=== PATIENT | female | born 1955 | race Caucasian/White ===

== ENCOUNTER → 2020-11-15 | Outpatient (CLI) | payer OTHER ==
[~2020-11-15] MED LIST: ALTOPREV20 MG PO; ANASTROZOLE1 MG PO; BETAMETHASONE V60 ML TP; CITALOPRAM HBR10 MG PO; COLACE 100MG C100 MG PO; COLACE100 MG PO; DULCOLAX5 MG PO; ELAVIL 50 MG TA50 MG PO; KEPPRA500 MG PO; KLONOPIN TAB 00.5 MG PO; KLONOPIN1 MG PO; LISINOPRIL-HCT1 EAC1 PO; NORCO 5-325 TA1 EACH PO; TENORMIN 50 MG50 MG PO; VITAMIN B-121000 MC2 SL; VITAMIN D250000 UNIT PO; VITAMIN D325 MCG PO; ZOFRAN4 MG PO
== END ==
LOC: HEART 5 13:44
DX: R06.02 Shortness of breath (principal); I27.20 Pulmonary hypertension, unspecified
CPT/HCPCS: 93306

== ENCOUNTER → 2021-03-11 | Outpatient (CLI) | payer OTHER ==
[2021-03-16 10:15] LABS: ACHR MODULATING ANTIBODIES <12 % (0-20)
== END ==
LOC: LAB 10:29
PROVIDERS: Ophthalmology
DX: G70.00 Myasthenia gravis without (acute) exacerbation (principal)
CPT/HCPCS: 83519

== ENCOUNTER → 2021-04-19 | Outpatient (CLI) | payer OTHER | LOC: MRI 08:42 | DX: R56.9 Unspecified convulsions (principal); R90.82 White matter disease, unspecified | CPT/HCPCS: 70553; A9577 ==

== ENCOUNTER 2021-04-23 13:29 | Emergency (ER) | payer OTHER ==
[~2021-04-23 13:29] MED LIST changes: -KEPPRA500 MG PO
[2021-04-23 14:24] LABS: HEMOGLOBIN 14.1 gm/dl (12.3-15.3); RED BLOOD COUNT 4.25 M/UL (4.00-5.10); WHITE BLOOD COUNT 5.1 K/UL (4.5-11.0)
[2021-04-23 14:32] LABS: BUN/CREATININE RATIO 21 (0-10)
== END 2021-04-23 16:12 | disposition home or self-care (01) ==
LOC: ER1 13:29
PROVIDERS: Physician Assistant Medical
DX: R56.9 Unspecified convulsions (principal); I10 Essential (primary) hypertension; Z85.3 Personal history of malignant neoplasm of breast; Z88.8 Allergy status to other drugs, medicaments and biological substances; Z79.899 Other long term (current) drug therapy
CPT/HCPCS: 71045; 80053; 81001; 82550; 82553; 83605; 83874; 84484; 85025; 93005; 99285

== ENCOUNTER 2021-05-15 15:43 | Emergency (ER) | payer OTHER, SELFPAY ==
[2021-05-15 17:26] LABS: HEMOGLOBIN 12.6 gm/dl (12.3-15.3); RED BLOOD COUNT 3.81 M/UL (4.00-5.10); WHITE BLOOD COUNT 3.9 K/UL (4.5-11.0)
[2021-05-15 17:58] LABS: BUN/CREATININE RATIO 15 (0-10)
== END 2021-05-15 20:30 | disposition home or self-care (01) ==
LOC: ER1 15:43
PROVIDERS: Family Medicine
DX: R56.9 Unspecified convulsions (principal); E87.6 Hypokalemia
CPT/HCPCS: 70450; 70496; 70498; 80048; 85025; 99285; Q9967

== ENCOUNTER 2021-05-19 10:58 | Emergency (ER) | payer OTHER, SELFPAY ==
[2021-05-19 11:55] LABS: HEMOGLOBIN 13.4 gm/dl (12.3-15.3); RED BLOOD COUNT 4.07 M/UL (4.00-5.10); WHITE BLOOD COUNT 4.7 K/UL (4.5-11.0)
[2021-05-19 12:18] LABS: BUN/CREATININE RATIO 23 (0-10)
[2021-05-19] MEDS ORDERED: KEPPRA500 MG PO (13:53)
== END 2021-05-19 14:12 | disposition home or self-care (01) ==
LOC: ER1 10:58
PROVIDERS: Student in an Organized Health Care Education/Training Program
DX: R56.9 Unspecified convulsions (principal); I10 Essential (primary) hypertension; Z88.8 Allergy status to other drugs, medicaments and biological substances
CPT/HCPCS: 80053; 81001; 82550; 82553; 83874; 84484; 85025; 93005; 96374; 99285; J1953

== ENCOUNTER 2021-05-25 10:14 | Emergency (ER) | payer OTHER, SELFPAY ==
[~2021-05-25 10:14] MED LIST changes: +KEPPRA500 MG PO
[2021-05-25 10:39] LABS: HEMOGLOBIN 13.8 gm/dl (12.3-15.3); RED BLOOD COUNT 4.36 M/UL (4.00-5.10); WHITE BLOOD COUNT 5.4 K/UL (4.5-11.0)
[2021-05-25 11:04] LABS: BUN/CREATININE RATIO 20 (0-10)
== END 2021-05-25 13:30 | disposition home or self-care (01) ==
LOC: ER1 10:14
PROVIDERS: Emergency Medicine
DX: R56.9 Unspecified convulsions (principal); E78.5 Hyperlipidemia, unspecified; I10 Essential (primary) hypertension; Z88.8 Allergy status to other drugs, medicaments and biological substances; Z79.899 Other long term (current) drug therapy
CPT/HCPCS: 80053; 81001; 85025; 99284; J2060

== ENCOUNTER 2021-05-30 07:51 | Emergency (ER) | payer OTHER ==
[2021-05-30 08:42] LABS: HEMOGLOBIN 12.3 gm/dl (12.3-15.3); RED BLOOD COUNT 3.79 M/UL (4.00-5.10)
[2021-05-30 09:03] LABS: BUN/CREATININE RATIO 19 (0-10)
== END 2021-05-30 10:50 | disposition home or self-care (01) ==
LOC: ER1 07:51
PROVIDERS: Emergency Medicine
DX: F44.5 Conversion disorder with seizures or convulsions (principal)
CPT/HCPCS: 80053; 85025; 99284; J7030

== ENCOUNTER 2021-09-09 14:42 | Observation (INO) | payer OTHER ==
[~2021-09-09] VITALS: Ht 160 cm; Wt 67.1 kg
[~2021-09-09 14:42] MED LIST changes: -CITALOPRAM HBR10 MG PO; +CITALOPRAM HBR20 MG PO; +VITAMIN B-121000 MC2 PO; -VITAMIN B-121000 MC2 SL
[2021-09-09 15:10] LABS: RED BLOOD COUNT 3.98 M/UL (4.00-5.10); WHITE BLOOD COUNT 4.4 K/UL (4.5-11.0)
[2021-09-09 15:36] LABS: BUN/CREATININE RATIO 17 (0-10)
[2021-09-09] MEDS ORDERED: LAMOTRIGINE25 MG PO (17:49)
[2021-09-10 05:01] LABS: HEMOGLOBIN 11.5 gm/dl (12.3-15.3); RED BLOOD COUNT 3.64 M/UL (4.00-5.10); WHITE BLOOD COUNT 3.4 K/UL (4.5-11.0)
[2021-09-10 05:26] LABS: BUN/CREATININE RATIO 19 (0-10)
[2021-09-11 07:52] LABS: HEMOGLOBIN 11.9 gm/dl (12.3-15.3); RED BLOOD COUNT 3.75 M/UL (4.00-5.10)
[2021-09-11 07:55] LABS: WHITE BLOOD COUNT 4.3 K/UL (4.5-11.0)
[2021-09-11 08:17] LABS: BUN/CREATININE RATIO 22 (0-10)
[2021-09-12 07:13] LABS: HEMOGLOBIN 11.9 gm/dl (12.3-15.3); RED BLOOD COUNT 3.64 M/UL (4.00-5.10); WHITE BLOOD COUNT 4.1 K/UL (4.5-11.0)
[2021-09-12 07:35] LABS: BUN/CREATININE RATIO 15 (0-10)
[2021-09-12] MEDS ORDERED: PROTONIX 40 MG40 M1 PO (09:05)
== END 2021-09-12 11:16 | disposition home or self-care (01) ==
LOC: ER1 14:42 → MED SURG 4 16:34 → CDU 16:34 → MED SURG 4 19:03
PROVIDERS: Emergency Medicine; Physician Assistant; ADMIT Internal Medicine
DX: R07.89 Other chest pain (principal); E87.6 Hypokalemia; D72.819 Decreased white blood cell count, unspecified; I10 Essential (primary) hypertension; Z85.038 Personal history of other malignant neoplasm of large intestine; Z85.3 Personal history of malignant neoplasm of breast; Z92.21 Personal history of antineoplastic chemotherapy; R56.9 Unspecified convulsions; I31.3 Pericardial effusion (noninflammatory); K22.89 Other specified disease of esophagus; R06.02 Shortness of breath; I27.20 Pulmonary hypertension, unspecified; N60.12 Diffuse cystic mastopathy of left breast; E78.5 Hyperlipidemia, unspecified; G62.9 Polyneuropathy, unspecified; F41.9 Anxiety disorder, unspecified; F32.A Depression, unspecified; K57.30 Diverticulosis of large intestine without perforation or abscess without bleeding; Z90.11 Acquired absence of right breast and nipple; Z90.49 Acquired absence of other specified parts of digestive tract; Z20.822 Contact with and (suspected) exposure to COVID-19; Z79.899 Other long term (current) drug therapy; Z98.51 Tubal ligation status; Z88.1 Allergy status to other antibiotic agents; Z88.5 Allergy status to narcotic agent; Z98.84 Bariatric surgery status
CPT/HCPCS: ECHO; 36415; 71045; 80048; 80053; 80061; 82550; 82553; 83735; 83874; 83880; 84132; 84439; 84443; 84484; 85025; 85379; 93005; 93306; 93970; 96372; 96374; 99285; G0378; J1200; J1650; J2060; J2270; J2405; J2930; Q9967

== ENCOUNTER → 2021-10-24 | Day surgery (SDC) | payer OTHER ==
[~2021-10-24] MED LIST changes: +DIAZEPAM PO; +LAMOTRIGINE25 MG PO; +PROTONIX 40 MG40 M1 PO
== END | disposition home or self-care (01) ==
LOC: OR 05:55
DX: K29.50 Unspecified chronic gastritis without bleeding (principal); K25.7 Chronic gastric ulcer without hemorrhage or perforation; R13.14 Dysphagia, pharyngoesophageal phase; I10 Essential (primary) hypertension; E66.3 Overweight; E78.00 Pure hypercholesterolemia, unspecified; K59.09 Other constipation; K22.4 Dyskinesia of esophagus; Z86.010 Personal history of colon polyps; Z85.038 Personal history of other malignant neoplasm of large intestine; Z68.29 Body mass index [BMI] 29.0-29.9, adult; Z20.822 Contact with and (suspected) exposure to COVID-19; Z98.51 Tubal ligation status; Z90.49 Acquired absence of other specified parts of digestive tract; Z88.5 Allergy status to narcotic agent; Z88.1 Allergy status to other antibiotic agents
CPT/HCPCS: J2704; J7040

== ENCOUNTER 2021-11-27 06:24 | Inpatient (IN) | payer OTHER ==
[~2021-11-27] VITALS: Ht 160 cm; Wt 68.0 kg
[2021-11-27 07:59] LABS: HEMOGLOBIN 14.8 gm/dl (12.3-15.3); RED BLOOD COUNT 4.53 M/UL (4.00-5.10); WHITE BLOOD COUNT 9.5 K/UL (4.5-11.0)
[2021-11-27 08:23] LABS: BUN/CREATININE RATIO 24 (0-10)
[2021-11-28] MEDS ORDERED: LOVASTATIN20 MG PO (06:41)
[2021-11-30 09:00] LABS: HEMOGLOBIN 13.8 gm/dl (12.3-15.3); RED BLOOD COUNT 4.28 M/UL (4.00-5.10); WHITE BLOOD COUNT 7.7 K/UL (4.5-11.0)
[2021-11-30 09:22] LABS: BUN/CREATININE RATIO 16 (0-10)
== END 2021-12-07 16:34 | disposition home or self-care (01) | DRG 331 ==
LOC: ER1 06:24 → CDU 12:11 → CCU 12:11 → MED SURG 4 11-30 14:06
PROVIDERS: Physician Assistant; ADMIT Surgery
PROC: 0DNU0ZZ Release Omentum, Open Approach (ICD-10-PCS; 2021-11-30)
PROC: 0DB80ZZ Excision of Small Intestine, Open Approach (ICD-10-PCS; principal; 2021-11-30 12:08)
DX: K56.50 Intestinal adhesions [bands], unspecified as to partial versus complete obstruction (principal); Z20.822 Contact with and (suspected) exposure to COVID-19; I10 Essential (primary) hypertension; F41.9 Anxiety disorder, unspecified; K21.9 Gastro-esophageal reflux disease without esophagitis; F32.A Depression, unspecified; E78.5 Hyperlipidemia, unspecified; Z85.3 Personal history of malignant neoplasm of breast; Z90.11 Acquired absence of right breast and nipple; Z90.49 Acquired absence of other specified parts of digestive tract; Z98.51 Tubal ligation status; Z88.6 Allergy status to analgesic agent; Z88.1 Allergy status to other antibiotic agents; Z82.49 Family history of ischemic heart disease and other diseases of the circulatory system; Z83.3 Family history of diabetes mellitus; Z83.6 Family history of other diseases of the respiratory system; Z85.038 Personal history of other malignant neoplasm of large intestine
CPT/HCPCS: 36415; 74018; 74019; 80053; 82550; 82553; 83605; 83690; 83874; 84484; 85025; 93005; 96372; 96374; 96375; 96376; 97161; 97165; 99285; A6212; J0690; J1100; J1170; J1200; J1650; J2370; J2405; J2704; J3010; J7030; J7120; Q9963; Q9967; U0002